=== PATIENT | female | born 1980 | race Caucasian/White ===

== ENCOUNTER 2021-07-13 15:09 | Emergency (ER) | payer OTHER ==
[2021-07-13] MEDS ORDERED: PENICILLIN VK 500MG STARTER 4 TAB BTL PO STA (16:06)
[2021-07-13] MEDS ORDERED: IBUPROFEN 600 MG TAB PO STA (16:06)
--- NOTE | 2021-07-13 16:21 | ED ---
General Adult HPI - General Chief complaint: Skin/Abscess/Foreign Body Stated complaint: abscess tooth Time Seen by Provider: 07/13/21 15:52 Source: patient Mode of arrival: ambulatory Limitations: no limitations - History of Present Illness Initial comments: Patient is a 41-year-old female presenting to the emergency Department with complaints of a possible dental abscess. She states she was recently treated for a skin infection with Keflex, finished that a few days ago but then started having some right-sided lower dental pain. She states she has a fracture with tooth is been there for years and it just started become painful over the last couple days. 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 She states they have been giving her Tylenol Motrin for the discomfort and it has been helping. She is requesting antibiotic for possible infection. She states she's had a really bad infection in the past and does not want to get that way. She denies any fevers or chills, no nausea or vomiting, no facial swelling. She denies a chest pain or shortness of breath. She is no further complaints. Patient's vital signs are stable upon arrival. - Related Data Previous Rx's Medication Instructions Recorded Penicillin V Potassium [Pen Vee K] 500 mg PO QID 7 Days #28 tablet 07/13/21 Allergies Allergy/AdvReac Type Severity Reaction Status Date / Time No Known Allergies Allergy Verified 07/13/21 15:18 Review of Systems ROS Statement: Those systems with pertinent positive or pertinent negative responses have been documented in the HPI. ROS Other: All systems not noted in ROS Statement are negative. Past Medical History Past Medical History: No Reported History History of Any Multi-Drug Resistant Organisms: None Reported Past Surgical History: Tubal Ligation Past Psychological History: No Psychological Hx Reported Smoking Status: Current every day smoker Past Alcohol Use History: None Reported Past Drug Use History: Heroin General Exam - General Exam Comments Initial Comments: GENERAL: Patient is well-developed and well-nourished. Patient is nontoxic and in no acute distress. HEAD: Atraumatic, normocephalic. EYES: Pupils equal round and reactive to light, extraocular movements intact, sclera anicteric, conjunctiva are normal. Eyelids were unremarkable. ENT: TMs normal, nares patent, oropharynx clear without exudates. Moist mucous membranes. Patient has numerous missing teeth, dental decay, she is a fracture and pain along tooth #27. No visible dental abscess. No facial swelling. NECK: Normal range of motion, supple without lymphadenopathy or JVD. LUNGS: Unlabored respirations. Breath sounds clear to auscultation bilaterally and equal. No wheezes rales or rhonchi. HEART: Regular rate and rhythm without murmurs, rubs or gallops. ABDOMEN: Soft, nontender, normoactive bowel sounds. MUSCULOSKELETAL: Normal extremities with adequate strength and normal range of motion, no pitting or edema. No clubbing or cyanosis. NEUROLOGICAL: Patient is alert and oriented x 3. SKIN: Warm, Dry, normal turgor, no rashes or lesions noted. Limitations: no limitations Course Vital Signs 07/13/21 15:16 Temperature 98.1 F Pulse Rate 63 Respiratory 20 Rate Blood Pressure 95/56 O2 Sat by Pulse 96 Oximetry Medical Decision Making - Medical Decision Making Patient is a 41-year-old female here with complaints of dental pain and possible abscess. She has fracture and pain along tooth #27. No facial swelling, no dental abscess seen today. Patient has been taking Tylenol and Motrin for her discomfort which has been helping. I will start her on penicillin for dental abscess. I will give her a starter pack today. She is agreeable this plan and care and is stable for discharge. Return parameters were discussed with her and she verbalized understanding. Case discussed with Dr. Mariscal. Disposition Clinical Impression: Fractured tooth, Pain, dental Disposition: HOME SELF-CARE Condition: Stable Instructions (If sedation given, give patient instructions): Toothache (ED) Additional Instructions: Please return to the Emergency Department if symptoms worsen or any other concerns. May alternate between Tylenol and ibuprofen for discomfort. Please take antibiotics as prescribed and finish entire course. Follow-up with your dentist. Prescriptions: Penicillin V Potassium [Pen Vee K] 500 mg PO QID 7 Days #28 tablet Is patient prescribed a controlled substance at d/c from ED?: No Referrals: Nonstaff,Physician [Primary Care Provider] - 1-2 days Time of Disposition: 16:30
[2021-07-13 17:26] VITALS: BP 101/61; PULSE 66; RESP 16; TEMP 98
== END 2021-07-13 17:27 | disposition home or self-care (01) ==
LOC: EC 15:09
DX: K03.81 Cracked tooth (principal); F17.200 Nicotine dependence, unspecified, uncomplicated; F11.90 Opioid use, unspecified, uncomplicated
CPT/HCPCS: 99282